=== PATIENT | female | born 1940 | race Caucasian/White ===

== ENCOUNTER → 2017-12-19 | Outpatient (CLI) | payer MEDICARE | END | disposition home or self-care (01) | LOC: RAH 14:40 | PROVIDERS: ATTEND Nurse Practitioner Adult Health | DX: K44.9 Diaphragmatic hernia without obstruction or gangrene (principal) | CPT/HCPCS: 71046 ==

== ENCOUNTER → 2018-07-07 | Outpatient (CLI) | payer MEDICARE | END | disposition home or self-care (01) | LOC: RAH 14:44 | PROVIDERS: ATTEND Nurse Practitioner Adult Health | DX: Z12.31 Encounter for screening mammogram for malignant neoplasm of breast (principal) | CPT/HCPCS: 77067 ==

== ENCOUNTER → 2018-09-15 | Outpatient (CLI) | payer OTHER | END | disposition home or self-care (01) | LOC: OIH 08:13 | PROVIDERS: ATTEND Nurse Practitioner Adult Health | DX: M47.816 Spondylosis without myelopathy or radiculopathy, lumbar region (principal); M41.86 Other forms of scoliosis, lumbar region; M85.88 Other specified disorders of bone density and structure, other site; M53.3 Sacrococcygeal disorders, not elsewhere classified; Z91.81 History of falling | CPT/HCPCS: 72100; 72220 ==

== ENCOUNTER 2019-06-24 19:48 | Emergency (ER) | payer OTHER ==
[2019-06-24] MEDS ORDERED: LIDOCAINE 1%-EPI 1:100,000 20 ML VIAL IJ ONE (21:15)
== END 2019-06-24 21:21 | disposition home or self-care (01) ==
LOC: EDH 19:48
DX: S01.521A Laceration with foreign body of lip, initial encounter (principal); I10 Essential (primary) hypertension; W18.39XA Other fall on same level, initial encounter; Y93.89 Activity, other specified; Y92.89 Other specified places as the place of occurrence of the external cause; Y99.8 Other external cause status
CPT/HCPCS: 12051; 99284; J3490

== ENCOUNTER → 2019-10-05 | Outpatient (CLI) | payer OTHER | END | disposition home or self-care (01) | LOC: OIH 10:25 | PROVIDERS: ATTEND Nurse Practitioner Adult Health | DX: R05 Cough (principal); K44.9 Diaphragmatic hernia without obstruction or gangrene; M47.814 Spondylosis without myelopathy or radiculopathy, thoracic region; M40.294 Other kyphosis, thoracic region | CPT/HCPCS: 71046 ==

== ENCOUNTER 2020-02-12 10:57 | Emergency (ER) | payer OTHER ==
[2020-02-12 11:30] LABS: BASOPHILS % (AUTO) 0.9 % (0.0-5.0); EOSINOPHILS % (AUTO) 2.4 % (0.0-8.0); HEMATOCRIT 40.3 % (36-48); LYMPHOCYTES % (AUTO) 20.6 % (21.0-51.0); MEAN CORPUSCULAR HEMOGLOBIN 34.3 pg (27.0-33.0); MEAN CORPUSCULAR VOLUME 100.8 fL (79-99); MONOCYTES % (AUTO) 7.9 % (3.0-13.0); PLATELET COUNT (AUTO) 263 K/uL (130-400); RED CELL DISTRIBUTION WIDTH 12.6 % (11.0-15.5); WHITE BLOOD COUNT (AUTO) 5.8 K/uL (4.8-10.8)
[2020-02-12 12:07] LABS: APPEARANCE,URINE Clear (CLEAR); BILIRUBIN,URINE Negative (NEGATIVE); COLOR,URINE Yellow (YELLOW); GLUCOSE, URINE (UA) Negative (NEGATIVE); KETONES,URINE Negative (NEGATIVE); LEUKOCYTE ESTERASE ,URINE Moderate (NEGATIVE); NITRATE,URINE Negative (NEGATIVE); OCCULT BLOOD,URINE Negative (NEGATIVE); PROTEIN,URINE Negative (NEGATIVE); UROBILINOGEN,URINE 0.2 mg/dL (0.2-1.0)
[2020-02-12 12:09] LABS: BILIRUBIN,TOTAL 0.6 mg/dL (0.2-1.0); TOTAL PROTEIN, SERUM 7.6 g/dL (6.0-8.3)
[2020-02-12 12:30] LABS: BACTERIA,URINE Few /HPF (None Seen); RBC,URINE 0-1 /HPF (0-1)
[2020-02-12] MEDS ORDERED: CEPHALEXIN 500 MG CAPSULE ONE (13:06)
== END 2020-02-12 13:22 | disposition home or self-care (01) ==
LOC: EDH 10:57
DX: R41.82 Altered mental status, unspecified (principal); N39.0 Urinary tract infection, site not specified; I10 Essential (primary) hypertension; G30.9 Alzheimer's disease, unspecified; F02.80 Dementia in other diseases classified elsewhere, unspecified severity, without behavioral disturbance, psychotic disturbance, mood disturbance, and anxiety; Z88.8 Allergy status to other drugs, medicaments and biological substances
CPT/HCPCS: 36415; 70450; 71046; 80053; 81001; 82948; 83605; 84484; 85025; 87040; 87088; 87804; 93005

== ENCOUNTER 2021-07-08 10:45 | Emergency (ER) | payer OTHER ==
[~2021-07-08] VITALS: Ht 154.9 cm; Wt 42.2 kg
[2021-07-08 11:00] LABS: BASOPHILS % (AUTO) 0.8 % (0.0-5.0); EOSINOPHILS % (AUTO) 1.8 % (0.0-8.0); HEMATOCRIT 38.9 % (36-48); LYMPHOCYTES % (AUTO) 18.4 % (21.0-51.0); MEAN CORPUSCULAR HEMOGLOBIN 34.6 pg (27.0-33.0); MEAN CORPUSCULAR HGB CONC 33.4 g/dL (32.0-36.0); MEAN CORPUSCULAR VOLUME 103.5 fL (79-99); MONOCYTES % (AUTO) 9.5 % (3.0-13.0); NEUTROPHILS % (AUTO) 69.3 % (40.0-77.0); PLATELET COUNT (AUTO) 274 K/uL (130-400); RED BLOOD CELL COUNT(AUTO) 3.76 MIL/uL (4.00-5.50); RED CELL DISTRIBUTION WIDTH 12.8 % (11.0-15.5); WHITE BLOOD COUNT (AUTO) 6.2 K/uL (4.8-10.8)
[2021-07-08 11:17] LABS: ALBUMIN 3.1 g/dL (3.5-5.0); BILIRUBIN,TOTAL 0.6 mg/dL (0.2-1.0); POTASSIUM 3.9 mmol/L (3.5-5.1); TOTAL PROTEIN, SERUM 6.9 g/dL (6.0-8.3)
[2021-07-08 12:17] LABS: APPEARANCE,URINE Clear (CLEAR); BILIRUBIN,URINE Negative (NEGATIVE); COLOR,URINE Yellow (YELLOW); GLUCOSE, URINE (UA) Negative (NEGATIVE); KETONES,URINE Negative (NEGATIVE); LEUKOCYTE ESTERASE ,URINE Moderate (NEGATIVE); NITRATE,URINE Negative (NEGATIVE); OCCULT BLOOD,URINE Negative (NEGATIVE); PROTEIN,URINE Negative (NEGATIVE); UROBILINOGEN,URINE 0.2 mg/dL (0.2-1.0)
[2021-07-08 12:24] LABS: BACTERIA,URINE Rare /HPF (None Seen); RBC,URINE 0-1 /HPF (0-1); SQUAMOUS EPITHELIAL CELL,UR Rare /HPF (0-2)
[2021-07-08] MEDS ORDERED: MEMA5TAB42 PO (12:32)
[2021-07-08] MEDS ORDERED: LOSA100T58 PO (12:40)
[2021-07-08] MEDS ORDERED: AMLO2.5T4 PO (12:40)
[2021-07-08] MEDS ORDERED: ERGO500093 PO (12:40)
[2021-07-08] MEDS ORDERED: METO25TA6 PO (12:40)
[2021-07-08] MEDS ORDERED: LOVA40TA2 PO (12:40)
[2021-07-08] MEDS ORDERED: ESCI-8 PO (12:40)
[2021-07-08 13:52] VITALS: BP 114/82
== END 2021-07-08 13:41 | disposition home or self-care (01) ==
LOC: EDH 10:45
DX: S22.42XA Multiple fractures of ribs, left side, initial encounter for closed fracture (principal); G25.9 Extrapyramidal and movement disorder, unspecified; F03.90 Unspecified dementia, unspecified severity, without behavioral disturbance, psychotic disturbance, mood disturbance, and anxiety; I10 Essential (primary) hypertension; Z88.0 Allergy status to penicillin; Z88.5 Allergy status to narcotic agent; Z79.899 Other long term (current) drug therapy; X58.XXXA Exposure to other specified factors, initial encounter; Y93.89 Activity, other specified; Y92.89 Other specified places as the place of occurrence of the external cause; Y99.8 Other external cause status
CPT/HCPCS: 36415; 70450; 71045; 71100; 80053; 81001; 84484; 85025; 87088; 93005

== ENCOUNTER 2022-12-13 13:08 | Emergency (ER) | payer OTHER ==
[~2022-12-13] VITALS: Ht 154.9 cm; Wt 39.5 kg
[~2022-12-13 13:08] MED LIST: AMLO2.5T4 PO; ERGO500093 PO; ESCI-8 PO; LOSA100T58 PO; LOVA40TA2 PO; MEMA5TAB42 PO; METO25TA6 PO
[2022-12-13] MEDS ORDERED: 0.9%NACL 1000ML 1,000 ML IV ONE (14:30)
[2022-12-13 15:05] LABS: APPEARANCE,URINE CLEAR (CLEAR); BILIRUBIN,URINE NEGATIVE (NEGATIVE); COLOR,URINE LIGHT-YELLOW (YELLOW); GLUCOSE, URINE (UA) NEGATIVE (NEGATIVE); KETONES,URINE 20 mg/dL (NEGATIVE); LEUKOCYTE ESTERASE ,URINE NEGATIVE Leu/uL (NEGATIVE); NITRATE,URINE NEGATIVE (NEGATIVE); OCCULT BLOOD,URINE NEGATIVE (NEGATIVE); PH,URINE 5.5 (5.0-8.0); PROTEIN,URINE 10 mg/dL (NEGATIVE); UROBILINOGEN,URINE 0.2 mg/dL (0.2-1.0)
[2022-12-13 15:08] LABS: MUCUS,URINE RARE LPF (None Seen); RBC,URINE 0-1 /HPF (0-1); WBC,URINE 0-1 /HPF (0-1)
[2022-12-13 15:19] LABS: BASOPHILS % (AUTO) 0.3 % (0.0-5.0); EOSINOPHILS % (AUTO) 0.3 % (0.0-8.0); HEMATOCRIT 39.4 % (36-48); MEAN CORPUSCULAR HEMOGLOBIN 33.9 pg (27.0-33.0); MEAN CORPUSCULAR HGB CONC 34.5 g/dL (32.0-36.0); MEAN CORPUSCULAR VOLUME 98.3 fL (79-99); MONOCYTES % (AUTO) 4.7 % (3.0-13.0); NEUTROPHILS % (AUTO) 88.3 % (40.0-77.0); PLATELET COUNT (AUTO) 249 K/uL (130-400); RED BLOOD CELL COUNT(AUTO) 4.01 MIL/uL (4.00-5.50); RED CELL DISTRIBUTION WIDTH 12.1 % (11.0-15.5); WHITE BLOOD COUNT (AUTO) 7.5 K/uL (4.8-10.8)
[2022-12-13 15:30] LABS: PROTHROMBIN TIME 10.9 SEC (9.6-11.6)
[2022-12-13 15:31] LABS: PARTIAL THROMBOPLASTIN TIME 25.1 SEC (26.3-35.5)
[2022-12-13 15:33] LABS: CREATININE 1.2 mg/dL (0.5-1.5); POTASSIUM 3.6 mmol/L (3.5-5.1)
[2022-12-13 15:40] LABS: ALBUMIN 3.7 g/dL (3.5-5.0); TOTAL PROTEIN, SERUM 7.8 g/dL (6.0-8.3)
[2022-12-13] MEDS ORDERED: LEVO-70 PO (16:46)
[2022-12-13] MEDS ORDERED: METR-172 PO (16:46)
[2022-12-13] MEDS ORDERED: LEVOFLOXACIN 500 MG TABLET PO SCH (17:00)
[2022-12-13] MEDS ORDERED: METRONIDAZOLE 500 MG TABLET PO SCH (17:00)
[2022-12-13 17:15] VITALS: BP 164/81
== END 2022-12-13 17:10 | disposition home or self-care (01) ==
LOC: EDH 13:08
DX: K57.92 Diverticulitis of intestine, part unspecified, without perforation or abscess without bleeding (principal); I10 Essential (primary) hypertension; F03.90 Unspecified dementia, unspecified severity, without behavioral disturbance, psychotic disturbance, mood disturbance, and anxiety; Z20.822 Contact with and (suspected) exposure to COVID-19; Z79.899 Other long term (current) drug therapy; Z88.0 Allergy status to penicillin; Z88.5 Allergy status to narcotic agent
CPT/HCPCS: 99285; 74176; 96360; 71045; 87635; 82550; 84484; 80053; 85025; 85610; 85730; 87040 ×2; 87088; 87804 ×2; 83605; 81001; 36415; 93005; C9803; J7030

== ENCOUNTER 2022-12-14 15:00 | Emergency (ER) | payer OTHER ==
[~2022-12-14] VITALS: Ht 152.4 cm; Wt 39.5 kg
[~2022-12-14 15:00] MED LIST changes: +LEVO-70 PO; +METR-172 PO
[2022-12-14 16:03] LABS: BASOPHILS % (AUTO) 0.2 % (0.0-5.0); EOSINOPHILS % (AUTO) 0.1 % (0.0-8.0); HEMATOCRIT 37.7 % (36-48); LYMPHOCYTES % (AUTO) 6.1 % (21.0-51.0); MEAN CORPUSCULAR HEMOGLOBIN 33.4 pg (27.0-33.0); MEAN CORPUSCULAR VOLUME 98.4 fL (79-99); MONOCYTES % (AUTO) 5.5 % (3.0-13.0); NEUTROPHILS % (AUTO) 87.7 % (40.0-77.0); PLATELET COUNT (AUTO) 264 K/uL (130-400); RED BLOOD CELL COUNT(AUTO) 3.83 MIL/uL (4.00-5.50); RED CELL DISTRIBUTION WIDTH 12.3 % (11.0-15.5); WHITE BLOOD COUNT (AUTO) 8.3 K/uL (4.8-10.8)
[2022-12-14 16:12] LABS: CREATININE 1.5 mg/dL (0.5-1.5); POTASSIUM 3.6 mmol/L (3.5-5.1)
[2022-12-14 16:20] LABS: ALBUMIN 3.6 g/dL (3.5-5.0); TOTAL PROTEIN, SERUM 7.5 g/dL (6.0-8.3)
[2022-12-14 16:29] VITALS: BP 129/95
[2022-12-14] MEDS ORDERED: 0.9%NACL 1000ML 1,000 ML IV ONE (16:30)
== END 2022-12-14 18:06 | disposition home or self-care (01) ==
LOC: EDH 15:00
DX: K57.32 Diverticulitis of large intestine without perforation or abscess without bleeding (principal); E86.9 Volume depletion, unspecified; F03.90 Unspecified dementia, unspecified severity, without behavioral disturbance, psychotic disturbance, mood disturbance, and anxiety; E78.00 Pure hypercholesterolemia, unspecified; I10 Essential (primary) hypertension; Z79.899 Other long term (current) drug therapy; Z88.0 Allergy status to penicillin; Z88.5 Allergy status to narcotic agent
CPT/HCPCS: 99284; 74176; 84484; 80053; 85025; 36415; J7030